=== PATIENT | female | born 1970 | race Caucasian/White ===

== ENCOUNTER 2018-03-08 17:43 | Emergency (ER) | payer OTHER ==
[2018-03-08 17:51] VITALS: BP 110/59
--- NOTE | 2018-03-08 17:55 | UC ---
FLU HPI - HPI Summary HPI Summary: 47 yo female presents with 3 days of mild sinus congestion and drainage. Last night felt some body aches and fatigue, but took tylenol and felt better. Today her symptoms persisted, but were still relived by tylenol. She is concerned that she has the flu. Denies fever, sore throat, cough, abdominal pain, n/v, dysuria - History of Current Complaint Chief Complaint: UCGeneralIllness Stated Complaint: FLU SYMPTOMS Time Seen by Provider: 03/08/18 17:55 Hx Obtained From: Patient Onset/Duration: Sudden Onset Severity Currently: Mild Severity Initially: Moderate Pain Intensity: 6 Pain Scale Used: 0-10 Numeric - Allergy/Home Medications Allergies/Adverse Reactions: Allergies Allergy/AdvReac Type Severity Reaction Status Date / Time morphine Allergy Itching Verified 03/08/18 17:51 environmental Allergy Unknown Uncoded 03/14/17 15:51 Reaction Details PMH/Surg Hx/FS Hx/Imm Hx - Additional Past Medical History Additional PMH: IBD - Surgical History Surgical History: Yes Surgery Procedure, Year, and Place: GALLBLADDER 06/2008-[facility] 1998 - Family History Known Family History: Positive: None - Social History Occupation: Employed Full-time Lives: With Family Alcohol Use: Occasionally Substance Use Type: None Smoking Status (MU): Never Smoked Tobacco Review of Systems All Other Systems Reviewed And Are Negative: Yes Constitutional: Positive: Fatigue, Other - Body aches Skin: Positive: Negative Eyes: Positive: Negative ENT: Positive: Nasal Discharge Respiratory: Positive: Negative Cardiovascular: Positive: Negative Gastrointestinal: Positive: Negative Neurovascular: Positive: Negative Neurological: Positive: Negative Psychological: Positive: Negative Physical Exam - Summary Physical Exam Summary: GENERAL: NAD. WDWN. No pain distress. SKIN: No rashes, sores, lesions, or open wounds. HEENT: Head: AT/NC Eyes: EOM intact. Conjunctiva clear without inflammation or discharge. Ears: Hearing grossly normal. TMs intact, no bulging, erythema, or edema. Nose: Nasal mucosa pink and moist. NTTP maxillary and frontal sinus. Throat: Posterior oropharynx without exudates, erythema, or tonsillar enlargement. Uvula midline. NECK: Supple. Nontender. No lymphadenopathy. CHEST: CTAB. No r/r/w. No accessory muscle use. Breathing comfortably and in no distress. CV: RRR. Without m/r/g. Pulses intact. Cap refill <2seconds NEURO: Alert. PSYCH: Age appropriate behavior. Triage Information Reviewed: Yes Vital Signs: Initial Vital Signs Temp 99.2 F 03/08/18 17:47 Pulse 65 03/08/18 17:47 Resp 19 03/08/18 17:47 BP 110/59 03/08/18 17:47 Pulse Ox 98 03/08/18 17:47 Laboratory Tests 03/08/18 18:30 Influenza A (Rapid) Negative Influenza B (Rapid) Negative Vital Signs Reviewed: Yes Flu Course/Dx - Course Course Of Treatment: Flu test negative. Suspect viral illness. Advised to continue tylenol and f/u if symptoms persists - Differential Dx/Diagnosis Provider Diagnosis: Viral syndrome Discharge - Sign-Out/Discharge Documenting (check all that apply): Patient Departure All imaging exams completed and their final reports reviewed: No Studies - Discharge Plan Condition: Stable Disposition: HOME Patient Education Materials: Viral Syndrome (ED) Referrals: Arlene Pierson MD [Primary Care Provider] - Additional Instructions: If you develop a fever, shortness of breath, chest pain, new or worsening symptoms - please call your PCP or go to the ED. Continue taking tylenol to relieve your symptoms. If your symptoms persist or worsen - please be rechecked - Billing Disposition and Condition Condition: STABLE Disposition: Home
== END 2018-03-08 18:50 | disposition home or self-care (01) ==
LOC: UCEAST 17:43
DX: Z88.5 Allergy status to narcotic agent (principal); B34.9 Viral infection, unspecified
CPT/HCPCS: 99211; G0463